=== PATIENT | female | born 1970 ===

== ENCOUNTER 2017-12-23 11:17 | Emergency (ER) | payer OTHER ==
[~2017-12-23] VITALS: Ht 162.6 cm; Wt 73.0 kg
[~2017-12-23 11:17] MED LIST: ABILIFY2 MG PO; AMBIEN10 MG PO; ATIVAN1 MG PO; ATIVAN2 MG PO; CELEBREX100 MG PO; LEXAPRO20 MG PO; LEXAPRO5 MG PO; SKELAXIN800 MG PO
[2017-12-23] MEDS ORDERED: RESTORIL30 M1 (12:03)
[2017-12-23] MEDS ORDERED: DIAZEPAM10 MG (12:03)
== END 2017-12-23 16:44 | disposition home or self-care (01) ==
LOC: ER 11:17
DX: M54.89 Other dorsalgia (principal); R51 Headache; R00.2 Palpitations; F41.8 Other specified anxiety disorders; N39.0 Urinary tract infection, site not specified

== ENCOUNTER 2024-09-30 07:50 | Outpatient (CLI) | payer OTHER ==
[~2024-09-30 07:50] MED LIST changes: +DIAZEPAM10 MG; +RESTORIL30 M1
== END 2024-09-30 07:53 | disposition home or self-care (01) ==
LOC: SONOGRAMA 07:50
PROVIDERS: ATTEND Pathology Anatomic Pathology
DX: D34 Benign neoplasm of thyroid gland (principal); E07.89 Other specified disorders of thyroid; E04.2 Nontoxic multinodular goiter